=== PATIENT | male | born 2000 | race African-American/Black ===

== ENCOUNTER 2020-07-26 10:35 | Emergency (ER) | payer SELFPAY ==
[2020-07-26 10:46] VITALS: BP 135/77
--- NOTE | 2020-07-26 11:06 | ER Document Report ---
ED General - General Chief Complaint: Chest Pain Stated Complaint: RIB PAIN/CHEST PAIN Time Seen by Provider: 07/26/20 10:43 - HPI Notes: 20-year-old male presents to ED for evaluation of right-sided chest pain starting earlier today. Patient states he was swinging a sledgehammer when the pain started. Patient notes that he is having pain on the right side with deep inspiration. Patient denies radiation of pain into the arms, back, neck, or shoulders, patient states he does have some increased shortness of breath with range of motion. He denies any other complaints. Denies history of asthma, cough symptoms, or concerns for COVID. - Related Data Allergies/Adverse Reactions: No Known Allergies Allergy (Unverified 07/26/20 10:54) Past Medical History - Social History Smoking Status: Never Smoker Frequency of alcohol use: None Drug Abuse: None Family History: None Review of Systems - Review of Systems Notes: Constitutional: Negative for fever. HENT: Negative for sore throat. Eyes: Negative for visual changes. Cardiovascular: + for chest pain with palpation to the right ribs Respiratory: + for shortness of breath. Gastrointestinal: Negative for abdominal pain, vomiting or diarrhea. Genitourinary: Negative for dysuria. Musculoskeletal: Negative for back pain. Skin: Negative for rash. Neurological: Negative for headaches, weakness or numbness. 10 point ROS negative except as marked above and in HPI. Physical Exam - Vital signs Vitals: Temp Pulse Resp BP Pulse Ox 98.1 F 88 20 135/77 H 98 07/26/20 10:45 07/26/20 10:45 07/26/20 10:45 07/26/20 10:45 07/26/20 10:45 General: No acute distress. Alert and oriented x3. Sitting comfortably in a stretcher. Skin: No jaundice, pallor, petechiae, or rashes. Warm and dry. HEENT: Normocephalic, atraumatic. Pupils are equal round reactive to light and accommodation. Extraocular movements are intact. TMs without erythema or bulging. Canals are clear. Nares patent without any discharge. Teeth in good condition. Pharynx without erythema, edema, or exudates. Mucous membranes moist. No tonsillar enlargement. Uvula is midline. Airway is patent. Neck: Supple with no lymphadenopathy. Full range of motion. Heart: Regular rate and rhythm. S1,S2. No murmurs, rubs, or gallops. Tenderness to palpation along the right anterior and lateral ribs. Lungs: Clear to auscultation bilaterally. No wheezes, rhonchi, rales. Equal chest expansion. No retractions. Abdomen: Soft, nontender to palpation, nondistended. Positive bowel sounds in all 4 quadrants. No masses. No CVA tenderness bilaterally. Back: No midline spinal TTP. No paraspinous muscular TTP. Neuro: GCS 15. Moving all extremities without discomfort. Psych: Mood and affect appropriate. Course - Re-evaluation Re-evalutation: 07/26/20 12:04 1-year-old male presents to ED for evaluation of right-sided rib and chest discomfort starting earlier today. Patient was using a sledgehammer at his job to break a wall. Patient reports he felt a pulling sensation. Notes some discomfort deep inspiration. Denies radiation of pain. Denies other complaints. Patient was evaluated with EKG which shows a normal sinus rhythm without ST segment elevations or depressions. Patient was also evaluated with a chest x-ray which shows no evidence of pneumothorax, rib fractures, or other acute intra thoracic pathology. Was advised of these findings. I believe he most likely has musculoskeletal strain. Patient is started on a course of Flexeril as well as NSAID medications. He is advised to splint when coughing and taking deep breaths. Advised to avoid heavy lifting and twisting. Patient is encouraged to follow-up with his primary care physician return to the ED if he develops any new or worsening symptoms. Patient understands these indications and is agreeable with this plan of care. - Vital Signs Vital signs: Temp Pulse Resp BP Pulse Ox 98.1 F 88 20 135/77 H 98 07/26/20 10:45 07/26/20 10:45 07/26/20 10:45 07/26/20 10:45 07/26/20 10:45 - Laboratory Results Critical Laboratory Results Reviewed: No Critical Results - Radiology Results Critical Radiology Results Reviewed: No Critical Results Discharge - Discharge Clinical Impression: Rib pain on right side Condition: Stable Disposition: HOME, SELF-CARE Instructions: Anti-Inflammatory Medication ([facility]), Chest Wall Pain ([facility]) Prescriptions: Cyclobenzaprine HCl [Flexeril 10 mg Tablet] 10 mg PO TIDP PRN #15 tab PRN Reason: Naproxen 500 mg PO BID PRN #14 tablet PRN Reason: Forms: Return to Work
--- NOTE | 2020-07-26 11:56 | RADIOLOGY REPORT (SQ) ---
EXAM DESCRIPTION: CHEST 2 VIEWS IMAGES COMPLETED DATE/TIME: 07/26/2020 11:13 am REASON FOR STUDY: chest pain COMPARISON: None. TECHNIQUE: Frontal and lateral radiographic views of the chest acquired. NUMBER OF VIEWS: Two view. LIMITATIONS: None. FINDINGS: LUNGS AND PLEURA: No opacities, masses or pneumothorax. No pleural effusion. MEDIASTINUM AND HILAR STRUCTURES: No masses or contour abnormalities. HEART AND VASCULAR STRUCTURES: Heart normal size. No evidence for failure. BONES: No acute findings. HARDWARE: None in the chest. OTHER: No other significant finding. IMPRESSION: NO SIGNIFICANT RADIOGRAPHIC FINDING IN THE CHEST. TECHNICAL DOCUMENTATION: JOB ID: [id number] 2010 [employer]- All Rights Reserved Reading location - IP/workstation name: [email or web address]
--- NOTE | 2020-07-26 17:34 | EKG REPORT ---
SEVERITY:- NORMAL ECG - SINUS RHYTHM ST ELEV, PROBABLE NORMAL EARLY REPOL PATTERN : Confirmed by: Cameron Burgess MD 26-Jul-2020 17:33:57
== END 2020-07-26 12:02 | disposition home or self-care (01) ==
LOC: ER 10:35
DX: R07.9 Chest pain, unspecified (principal); R07.81 Pleurodynia
CPT/HCPCS: 71046; 93005; 93010; 99284